=== PATIENT | male | born 1940 | race Caucasian/White ===

== ENCOUNTER 2023-03-03 15:06 | Emergency (ER) | payer MEDICARE, OTHER ==
[2023-03-03] MEDS ORDERED: Piperacillin/Tazobactam 4.5 GM in Sodium Chloride 0.9% 100 ML IV ONE (16:11)
[2023-03-03 16:20] LABS: APPEARANCE,URINE CLEAR (Clear); BILIRUBIN,URINE NEGATIVE (Negative); COLOR,URINE YELLOW (Yellow); GLUCOSE,URINE NEGATIVE (Negative); KETONES,URINE NEGATIVE (Negative); LEUKOCYTE ESTERASE,URINE NEGATIVE (Negative); NITRITE,URINE NEGATIVE (Negative); OCCULT BLOOD,URINE 1+ (Negative); PROTEIN,URINE 1+ (Negative); UROBILINOGEN,URINE 0.2 (0.2-1.0)
[2023-03-03 16:23] LABS: BASOPHILS PERCENT AUTO 0.5 % (0.0-1.0); EOSINOPHILS ABSOLUTE AUTO 0.1 K/mm3 (0.0-0.4); EOSINOPHILS PERCENT AUTO 1.4 % (0.0-6.0); HEMATOCRIT 47.7 % (42.0-52.0); HEMOGLOBIN 14.3 gm/dl (14.0-18.0); IMMATURE GRAN ABSOLUTE AUTO 0.03 K/mm3 (0.00-0.05); IMMATURE GRAN PERCENT AUTO 0.5 % (0.0-0.4); LYMPHOCYTES ABSOLUTE AUTO 0.6 K/mm3 (1.0-4.8); LYMPHOCYTES PERCENT AUTO 10.3 % (24.0-44.0); MEAN CORPUSCULAR HEMOGLOBIN 24.9 pg (28.0-32.0); MEAN PLATELET VOLUME 9.9 fl (9.4-12.4); MONOCYTES ABSOLUTE AUTO 0.1 K/mm3 (0.0-0.8); MONOCYTES PERCENT AUTO 0.8 % (0.0-8.0); NEUTROPHILS ABSOLUTE AUTO 5.1 K/mm3 (1.8-7.7); NEUTROPHILS PERCENT AUTO 86.5 % (41.0-71.0); PLATELET COUNT,PLT 157 K/mm3 (150-400); RED BLOOD CELL COUNT 5.75 M/mm3 (4.52-5.90)
[2023-03-03] MEDS ORDERED: Sodium Chloride 0.9% 10 ML SDV FLUSH ONE (16:23)
[2023-03-03] MEDS ORDERED: Iopamidol 755 Mg/ML 100 ML Bottle IVPUSH ONE (16:23)
[2023-03-03] MEDS ORDERED: Magnesium Sulfate/Water 2 GM in Premix Bag 1 BAG IV ONE (16:28)
[2023-03-03] MEDS ORDERED: Sodium Chloride 0.9% 500 ML IV ONE (16:30)
[2023-03-03 16:31] LABS: INR 1.1; PROTHROMBIN TIME 11.7 SECONDS (9.7-12.0)
[2023-03-03 16:42] LABS: A/G RATIO 1.1 (1-2); ALBUMIN 3.8 g/dl (3.4-5.0); ALKALINE PHOSPHATASE 86 U/L (46-116); ASPARTATE AMNIOTRANSFERASE,AST 21 U/L (15-37); BILIRUBIN TOTAL 0.6 mg/dL (0.2-1.0); BLOOD UREA NITROGEN,BUN 21 mg/dL (7-18); BUN/CREATININE RATIO 16.2 (14-18); CALCIUM 9.6 mg/dL (8.5-10.1); CARBON DIOXIDE,CO2 26 mEq/L (21-32); CHLORIDE,CL 106 mEq/L (98-107); CREATININE 1.3 mg/dL (0.7-1.3); EST CRCL DRUG DOSING (CG) 38.85 mL/min; ESTIMATED GFR 55 mL/min (>60); GLUCOSE RANDOM 147 mg/dL (70-99); LIPASE 20 U/L (16-77); PROTEIN TOTAL,TP 7.4 g/dl (6.4-8.2); SODIUM,NA 144 mEq/L (136-145)
[2023-03-03 16:43] LABS: ALANINE AMINOTRANSFERASE,ALT < 6 U/L (16-63)
[2023-03-03 16:44] LABS: TROPONIN I HIGH SENSITIVITY 223 pg/mL (<=76)
[2023-03-03 16:45] LABS: LACTIC ACID 3.2 mmol/L (0.4-2.0)
[2023-03-03] MEDS ORDERED: Ondansetron 4 MG/2 ML SDV IVPUSH ONE (16:56)
[2023-03-03] MEDS ORDERED: Aspirin 81 MG Tab.Chew PO ONE (16:56)
[2023-03-03] MEDS ORDERED: Ondansetron 4 MG/2 ML SDV ONE (16:57)
[2023-03-03 17:05] LABS: CORONAVIRUS COVID-19 NAA NEGATIVE (NEGATIVE); INFLUENZA A NAA NEGATIVE (NEGATIVE); RESPIRATORY SYNCYTIAL VIR NAA NEGATIVE (NEGATIVE)
[2023-03-03 17:19] LABS: PCO2 ARTERIAL 37.6 mmHg (35.0-45.0)
[2023-03-03 17:20] LABS: BASE EXCESS ARTERIAL -2.9 (-2-2.0); BICARBONATE,ARTERIAL 21.4 meq/L (22.0-26.0); O2 SATURATION ARTERIAL 93.2 % (96.0-97.0)
[2023-03-03 17:33] LABS: RBC,URINE 20-30 /hpf (0-5); WBC,URINE 0-5 /hpf (0-5)
[2023-03-03 17:34] LABS: BACTERIA,URINE FEW /hpf (FEW); MUCUS,URINE FEW /hpf (FEW); SQUAMOUS EPITHELIAL CELLS,UR 0-5 /hpf (0-5)
[2023-03-03] MEDS ORDERED: Diltiazem 25 MG/5 ML SDV IVPUSH ONE (18:21)
[2023-03-03] MEDS ORDERED: Furosemide 40 MG/4 ML VIAL IVPUSH ONE (18:23)
[2023-03-03] MEDS ORDERED: Diltiazem 125 MG in Sodium Chloride 0.9% 100 ML IV SCH (18:30)
[2023-03-03] MEDS ORDERED: Heparin Sodium 5,000 Units/ML Vial IVPUSH ONE (19:27)
[2023-03-03] MEDS ORDERED: Heparin Sodium/D5W 25,000 UNITS/500 ML BAG IV SCH (19:30)
== END 2023-03-04 00:35 ==
LOC: JD.ED 15:06
DX: I48.91 Unspecified atrial fibrillation (principal); I21.4 Non-ST elevation (NSTEMI) myocardial infarction; I50.9 Heart failure, unspecified; Z90.49 Acquired absence of other specified parts of digestive tract; Z20.822 Contact with and (suspected) exposure to COVID-19
CPT/HCPCS: 0241U; 36415; 36600; 71275; 74177; 80053; 81001; 82803; 83605; 83690; 83880; 84484; 85025; 85610; 85730; 87040; 87077; 87154; 87186; 93005; 94660; 96365; 96366; 96368; 96375; 96376; 99285; A9270; J1644; J1940; J2405; J2543; J3475; J3490; J7030; Q9967; 93010